=== PATIENT | female | born 1995 | race Caucasian/White ===

== ENCOUNTER 2017-01-07 11:36 | Emergency (ER) | payer SELFPAY ==
[~2017-01-07] VITALS: Ht 162.6 cm; Wt 68.0 kg
[~2017-01-07 11:36] MED LIST: Z.0.NO CURRENT MEDS
[2017-01-07 11:37] VITALS: BP 135/90; PULSE 119; RESP 20; TEMP 99.9; O2SAT 99
--- NOTE | 2017-01-07 11:44 | PD ---
Physical Exam Date Seen by Provider: January 07, 2017 Time Seen by Provider: 11:40 Narrative 21 year old female presents to the emergency department for evaluation of mouth ulcers, inability to eat or drink due to pain. She ran a fever of 102 on Thursday morning and went to Urgent Care and was diagnosed with stomatitis. She was given a mouthwash. She saw her PCP on Thursday and was given nystatin. Her mother is worried that she is dehydrated because she has not eaten or drank since Thursday. No chronic medical problems. Vital signs reviewed. Patient awaiting bed placement. Data Data Last Documented VS Vital Signs Date Time Temp Pulse Resp B/P Pulse Ox O2 Delivery O2 Flow Rate FiO2 01/07/17 11:37 99.9 119 20 135/90 99 MDM Supervised Visit with HANNAH: Sima Cerna January 07, 2017 11:44
[2017-01-07] MEDS ORDERED: MAGICADU2 SWISH-SWAL (13:09)
[2017-01-07] MEDS ORDERED: LIDO1SOL8 SWISH-SWAL (13:09)
--- NOTE | 2017-01-07 13:21 | PD ---
HPI Chief Complaint: Oral / Dental Pain or Problem Time Seen by Provider: 12:55 Travel History International Travel<30 days: No Contact w/Intl Traveler<30days: No Traveled to known affect area: No History of Present Illness HPI The patient was seen and examined in the presence of the nurse. This patient complains of throat pain and lesions. Worse when swallowing. She is worried she is getting dehydrated. She saw her primary physician and an urgent care center for this both. Was diagnosed with stomatitis. Symptoms severity is moderate. No alleviating factors. Duration 4 days PFSH Past Medical History Asthma: Yes (ATHLETIC INDUCED) Diminished Hearing: No Medical other: Yes (RECENT DX WITH STOMATITIS) ?: Not LMP: 12/31/16 : 1 Para: 0 : 1 Past Surgical History Surgical History: No Previous Surgery Social History Alcohol Use: No Tobacco Use: No Substance Use: No Allergies-Medications (Allergen,Severity, Reaction): Coded Allergies: Penicillin (Verified Allergy, Severe, SOB, 01/07/17) Reported Meds & Prescriptions Reported Meds & Active Scripts Active Reported Lidocaine Viscous Liq 2 % Liqd 15 Ml SWISH-SWAL Q3HR PRN Magic Mouthwash Adult Liq (Multi-Ingredient Mouthwash/Gargle) 120 Ml Susp 5 Ml SWISH-SWAL QID Each 5mL contains: Nystatin 200,000units, Diphenhydramine 4.25mg, Viscous Lidocaine 10mg, Lang syrup 0.8 mL Review of Systems General / Constitutional: No: Fever Eyes: No: Visual changes HENT: Positive: Sore Throat, No: Headaches Cardiovascular: No: Chest Pain or Discomfort Respiratory: No: Shortness of Breath Gastrointestinal: No: Abdominal Pain Genitourinary: No: Dysuria Musculoskeletal: No: Pain Skin: No Rash Neurologic: No: Weakness Psychiatric: No: Depression Endocrine: No: Polydipsia Hematologic/Lymphatic: No: Easy Bruising Physical Exam Narrative GENERAL: Well-nourished, well-developed patient in no apparent distress. SKIN: Focused skin assessment reveals no rash and nodules. Skin is Warm and dry. HEAD: Atraumatic. Normocephalic. EYES: Pupils equal and round. No scleral icterus. No injection or drainage. ENT: No nasal bleeding or discharge. Mucous membranes pink and moist. Has multiple ulcerative lesions in the buccal mucosa and a whitish coating on the tongue. Uvula midline. NECK: Trachea midline. No JVD. CARDIOVASCULAR: Regular rate and rhythm. No murmur appreciated. RESPIRATORY: No accessory muscle use. Clear to auscultation. Breath sounds equal bilaterally. GASTROINTESTINAL: Abdomen soft, non-tender, nondistended. Hepatic and splenic margins not palpable. MUSCULOSKELETAL: No obvious deformities. No clubbing. No cyanosis. No edema. NEUROLOGICAL: Awake and alert. No obvious cranial nerve deficits. Motor grossly within normal limits. Normal speech. PSYCHIATRIC: Appropriate mood and affect; insight and judgment normal. Data Data Last Documented VS Vital Signs Date Time Temp Pulse Resp B/P Pulse Ox O2 Delivery O2 Flow Rate FiO2 01/07/17 11:37 99.9 119 20 135/90 99 Orders Iv Access Insert/Monitor (01/07/17 13:16) Complete Blood Count With Diff (01/07/17 13:16) Basic Metabolic Panel (Bmp) (01/07/17 13:16) Sodium Chlor 0.9% 1000 Ml Inj (Ns 1000 M (01/07/17 13:30) Iuxj-[id number]-Jcfs Liq (Magic Mouthwash Adul (01/07/17 13:30) Labs Laboratory Tests Test 01/07/17 13:20 White Blood Count 7.3 TH/MM3 Red Blood Count 5.73 MIL/MM3 Hemoglobin 15.9 GM/DL Hematocrit 48.1 % Mean Corpuscular Volume 84.1 FL Mean Corpuscular Hemoglobin 27.8 PG Mean Corpuscular Hemoglobin 33.1 % Concent Red Cell Distribution Width 14.0 % Platelet Count 340 TH/MM3 Mean Platelet Volume 8.5 FL Neutrophils (%) (Auto) 67.9 % Lymphocytes (%) (Auto) 23.2 % Monocytes (%) (Auto) 8.2 % Eosinophils (%) (Auto) 0.4 % Basophils (%) (Auto) 0.3 % Neutrophils # (Auto) 5.0 TH/MM3 Lymphocytes # (Auto) 1.7 TH/MM3 Monocytes # (Auto) 0.6 TH/MM3 Eosinophils # (Auto) 0.0 TH/MM3 Basophils # (Auto) 0.0 TH/MM3 CBC Comment DIFF FINAL Differential Comment Sodium Level 138 MEQ/L Potassium Level 3.9 MEQ/L Chloride Level 99 MEQ/L Carbon Dioxide Level 22.7 MEQ/L Anion Gap 16 MEQ/L Blood Urea Nitrogen 13 MG/DL Creatinine 0.93 MG/DL Estimat Glomerular Filtration 75 ML/MIN Rate Random Glucose 73 MG/DL Calcium Level 9.5 MG/DL [facility] Medical Decision Making Medical Screen Exam Complete: Yes Emergency Medical Condition: Yes Medical Record Reviewed: Yes Differential Diagnosis Stomatitis, esophagitis, candidiasis Narrative Course I have reviewed the patient's electronic medical record. IV placed I gave her 1 L normal saline IV bolus Gave her dose of IV mouthwash for symptom control CBC is normal with no leukocytosis Metabolic profile shows normal electrolytes and renal function On recheck she is improved after the lidocaine combination I offered her pain prescription but she declines I do not think this is bacterial I advised her to follow-up with her family physician who has already seen here for this a couple days ago. I encouraged her to have HIV testing and make sure she does not of immunocompromise. The lesions do not look like thrush. She is well-hydrated at this time Diagnosis Primary Impression: Stomatitis and mucositis Additional Impression: Dehydration, mild Additional Instructions: The patient was advised to follow up with their physician and return if they worsen. I have recommended clear liquids for 24 hours, then gradually advance as tolerated. Med/Other Pt SpecificInfo: Other Disposition: 01 DISCHARGE HOME Condition: Stable Britton Campoverde MD January 07, 2017 13:21
[2017-01-07] MEDS ORDERED: NYSTAT/DIPHENHY/LIDO MOUTHWASH (Adult) 120ML SWISH-SWAL SCH (13:30)
[2017-01-07] MEDS ORDERED: SODIUM CHLOR 0.9% 1000 ML INJ 1,000 ML IV ONE (13:30)
[2017-01-07 13:40] LABS: BASOPHIL % 0.3 % (0.0-2.0); EOSINOPHIL % 0.4 % (0.0-4.0); HEMATOCRIT 48.1 % (35.0-46.0); HEMO FLAGS DIFF FINAL; LYMPH % 23.2 % (9.0-44.0); LYMPHOCYTE # 1.7 TH/MM3 (1.0-4.8); MEAN CELL VOLUME 84.1 FL (80.0-100.0); MEAN CORPUSCULAR HEMOGLOBIN 27.8 PG (27.0-34.0); MEAN CORPUSCULAR HGB CONC 33.1 % (32.0-36.0); MONO % 8.2 % (0.0-8.0); NEUT % 67.9 % (16.0-70.0); PLATELET COUNT 340 TH/MM3 (150-450); RED BLOOD COUNT 5.73 MIL/MM3 (4.00-5.30); WHITE BLOOD COUNT 7.3 TH/MM3 (4.0-11.0)
[2017-01-07 13:51] LABS: BICARBONATE 22.7 MEQ/L (21.0-32.0); POTASSIUM 3.9 MEQ/L (3.5-5.1)
== END 2017-01-07 15:30 | disposition home or self-care (01) ==
LOC: NEPD 11:36
DX: K12.1 Other forms of stomatitis (principal); K12.30 Oral mucositis (ulcerative), unspecified; E86.0 Dehydration
CPT/HCPCS: 80048; 85025; 96360; 99284; J7030